=== PATIENT | male | born 1970 | race African-American/Black ===

== ENCOUNTER 2024-10-16 07:34 | Emergency (ER) | payer OTHER ==
[~2024-10-16] VITALS: Ht 188 cm; Wt 83.0 kg
[2024-10-16 07:41] VITALS: O2SAT 100
[2024-10-16] MEDS ORDERED: IBUP-2028 PO (08:57)
[2024-10-16 09:04] VITALS: TEMP 36.7; O2SAT 100
[2024-10-16 09:05] VITALS: BP 124/82; PULSE 67; RESP 18
[2024-10-16] MEDS: ACETAMINOPHEN WITH CODEINE 300/30MG TABLET PO ONE (09:05)
== END 2024-10-16 09:06 | disposition home or self-care (01) ==
LOC: ER 07:34
DX: M54.40 Lumbago with sciatica, unspecified side (principal); Z79.899 Other long term (current) drug therapy; Z79.1 Long term (current) use of non-steroidal anti-inflammatories (NSAID)
CPT/HCPCS: 72100; 99283